=== PATIENT | female | born 1950 | race Two or more races ===

== ENCOUNTER → 2018-08-02 | Emergency (ER) | payer OTHER ==
[~2018-08-02] VITALS: Ht 160 cm; Wt 72.6 kg
[~2018-08-02] MED LIST: COZAAR25 MG; SYNTHROID200 MCG; VASOTEC2.5 MG
== END | disposition home or self-care (01) ==
LOC: ER 10:56
DX: J45.998 Other asthma (principal)

== ENCOUNTER → 2022-08-05 | Outpatient (CLI) | payer OTHER | END | disposition home or self-care (01) | LOC: NUCLEAR 07:00 | PROVIDERS: ATTEND Specialist | DX: I11.9 Hypertensive heart disease without heart failure (principal); E78.5 Hyperlipidemia, unspecified; E11.9 Type 2 diabetes mellitus without complications | CPT/HCPCS: 78452; 93017; A9500 ==

== ENCOUNTER 2022-08-28 07:39 | Outpatient (CLI) | payer OTHER | END 2022-08-28 07:45 | disposition home or self-care (01) | LOC: LAB 07:39 | PROVIDERS: ATTEND Internal Medicine Hematology & Oncology | DX: D50.8 Other iron deficiency anemias (principal); I10 Essential (primary) hypertension; R74.02 Elevation of levels of lactic acid dehydrogenase [LDH]; K76.89 Other specified diseases of liver; D51.1 Vitamin B12 deficiency anemia due to selective vitamin B12 malabsorption with proteinuria; D51.0 Vitamin B12 deficiency anemia due to intrinsic factor deficiency; E03.8 Other specified hypothyroidism; E06.3 Autoimmune thyroiditis; D51.3 Other dietary vitamin B12 deficiency anemia; D69.6 Thrombocytopenia, unspecified; E11.9 Type 2 diabetes mellitus without complications; D72.820 Lymphocytosis (symptomatic); K80.20 Calculus of gallbladder without cholecystitis without obstruction ==

== ENCOUNTER → 2022-12-11 08:22 | Outpatient (CLI) | payer OTHER ==
[2022-12-11 09:26] LABS: URINE APPEARANCE Clear; URINE BILIRRUBIN Negative (NEGATIVE); URINE BLOOD Negative; URINE COLOR Yellow; URINE GLUCOSE Negative (NEGATIVE); URINE LEUKOCYTE Negative; URINE NITRATE Negative; URINE PROTEIN Negative (NEGATIVE); URINE UROBILINOGEN 0.2 E.U./dl
[2022-12-11 09:30] LABS: URINE BACTERIA 15.1 uL (0.0-1933); URINE EPITHELIAL CELLS 4.7 uL (0.0-38.8); URINE WBC 3.5 uL (0.0-23.2)
[2022-12-11 09:37] LABS: URINE RBC 1.4 uL (0.0-20.8)
[2022-12-11 10:10] LABS: ALBUMIN 3.9 gm/dL (3.4-5.0); BILIRUBIN TOTAL 0.49 mg/dL (0.3-1.2); CALCIUM 8.8 mg/dL (8.5-10.1); CHOL HDL RATIO 2.4 (0-5.0); CREATININE SERUM 0.66 mg/dL (0.55-1.02); GFR 88.54; GLOBULINA 3.9 G/DL (2.4-3.5); POTASSIUM 3.92 mEq/L (3.5-5.1); T4 FREE 1.05 NG/ML (0.76-1.46); TOTAL PROTEIN 7.8 gm/dL (6.4-8.2); TSH 3.07 uIU/mL (0.358-3.74)
[2022-12-11 10:11] LABS: HEMATOCRIT 39.1 % (36.0-45.00); HEMOGLOBIN 12.7 g/dL (12.0-15.00); MEAN CELL VOLUME 93.7 fL (80.00-100.00); MEAN CORPUSCULAR HEMOGLOBIN 30.5 pg (27.00-32.0); MEAN CORPUSCULAR HGB CONC 32.5 g/dl (32.0-36.0); RED BLOOD COUNT 4.18 M/uL (4.00-6.00); RED CELL DISTRIBUTION WIDTH 13.6 % (11.5-14.5)
[2022-12-11 11:35] LABS: FOLIC ACID > 20.00 ng/ml (4.78-20)
[2022-12-11 13:10] LABS: PLATELET COUNT 82 K/uL (150-450)
== END | disposition home or self-care (01) ==
LOC: LAB 08:22
PROVIDERS: ATTEND Internal Medicine Hematology & Oncology
DX: I11.9 Hypertensive heart disease without heart failure (principal); E03.5 Myxedema coma; E11.9 Type 2 diabetes mellitus without complications; D50.8 Other iron deficiency anemias; R79.9 Abnormal finding of blood chemistry, unspecified; R74.02 Elevation of levels of lactic acid dehydrogenase [LDH]; K76.89 Other specified diseases of liver; E03.8 Other specified hypothyroidism; D63.8 Anemia in other chronic diseases classified elsewhere; D55.0 Anemia due to glucose-6-phosphate dehydrogenase [G6PD] deficiency; D51.8 Other vitamin B12 deficiency anemias; D63.1 Anemia in chronic kidney disease; C73 Malignant neoplasm of thyroid gland; D51.3 Other dietary vitamin B12 deficiency anemia; D69.6 Thrombocytopenia, unspecified; D72.820 Lymphocytosis (symptomatic); K80.20 Calculus of gallbladder without cholecystitis without obstruction; G25.0 Essential tremor

== ENCOUNTER 2023-05-08 08:00 | Outpatient (CLI) | payer OTHER ==
[2023-05-08] MEDS ORDERED: SYNTHROID112 MCG PO (08:53)
[2023-05-08] MEDS ORDERED: METFORMIN HCL1000 MG PO (08:54)
[2023-05-08] MEDS ORDERED: LIPITOR40 MG PO (08:54)
[2023-05-08 10:05] LABS: COL EPI 122 SECONDS (82-175)
== END 2023-05-08 08:34 | disposition home or self-care (01) ==
LOC: LAB 08:00
PROVIDERS: ATTEND Internal Medicine Pulmonary Disease
DX: D69.1 Qualitative platelet defects (principal)

== ENCOUNTER 2023-05-18 05:25 | Inpatient (IN) | payer OTHER ==
[2023-05-08 09:37] LABS: HEMATOCRIT 36.4 % (36.0-45.00); HEMOGLOBIN 12.4 g/dL (12.0-15.00); MEAN CELL VOLUME 93.2 fL (80.00-100.00); MEAN CORPUSCULAR HEMOGLOBIN 31.8 pg (27.00-32.0); MEAN CORPUSCULAR HGB CONC 34.1 g/dl (32.0-36.0); RED BLOOD COUNT 3.91 M/uL (4.00-6.00); RED CELL DISTRIBUTION WIDTH 13.8 % (11.5-14.5)
[2023-05-08 09:39] LABS: PLATELET COUNT 128 K/uL (150-450); URINE APPEARANCE Clear; URINE BILIRRUBIN Negative (NEGATIVE); URINE BLOOD Negative; URINE COLOR Yellow; URINE GLUCOSE Negative (NEGATIVE); URINE LEUKOCYTE Negative; URINE NITRATE Negative; URINE PROTEIN Negative (NEGATIVE); URINE UROBILINOGEN 0.2 E.U./dl
[2023-05-08 09:43] LABS: URINE BACTERIA 13.8 uL (0.0-1933); URINE EPITHELIAL CELLS 1.6 uL (0.0-38.8); URINE WBC 2.2 uL (0.0-23.2)
[2023-05-08 09:47] LABS: URINE RBC 0.2 uL (0.0-20.8)
[2023-05-08 10:00] LABS: ALBUMIN 3.9 gm/dL (3.4-5.0); BILIRUBIN TOTAL 0.39 mg/dL (0.3-1.2); CALCIUM 9.6 mg/dL (8.5-10.1); CREATININE SERUM 0.63 mg/dL (0.55-1.02); GFR 93.15; GLOBULINA 3.7 G/DL (2.4-3.5); POTASSIUM 4.37 mEq/L (3.5-5.1); TOTAL PROTEIN 7.6 gm/dL (6.4-8.2)
[2023-05-08 10:25] LABS: INR 1.01; PARTIAL THROMBOPLASTIN TIME 28.4 SECONDS (22.0-34.0); PROTHROMBIN TIME 10.6 SECONDS (9.0-11.5)
[~2023-05-18] VITALS: Ht 160 cm; Wt 66.7 kg
[~2023-05-18 05:25] MED LIST changes: +LIPITOR40 MG PO; +METFORMIN HCL1000 MG PO; +SYNTHROID112 MCG PO
[2023-05-18] MEDS ORDERED: DEXAMETHASONE SODIUM PHOSPHATE 4 MG/ML VIAL ONE ×2 (07:18→07:24)
[2023-05-18] MEDS ORDERED: CEFAZOLIN SODIUM 1,000 MG VIAL ONE (08:22)
[2023-05-18] MEDS ORDERED: DEXAMETHASONE SODIUM PHOSPHATE 4 MG/ML VIAL IV ONE (09:30)
[2023-05-18] MEDS ORDERED: CEFAZOLIN SODIUM 1,000 MG VIAL IV ONE (09:30)
[2023-05-18] MEDS ORDERED: ENALAPRILAT DIHYDRATE 1.25 MG/ML VIAL IV PRN (10:45)
[2023-05-18] MEDS ORDERED: ONDANSETRON HCL 2 MG/ML VIAL IV PRN (10:45)
[2023-05-18] MEDS ORDERED: ACETAMINOPHEN 500 MG GEL..CAP PO SCH (13:00)
[2023-05-18] MEDS ORDERED: LEVALBUTEROL HCL 1.25 MG/3 ML SOLUTION IH SCH (13:00)
[2023-05-18] MEDS ORDERED: Calcium Carbonate 1 TAB TABLET PO SCH (21:00)
[2023-05-18] MEDS ORDERED: BUDESONIDE 0.5 MG/2 ML AMPUL.NEB IH SCH (21:00)
[2023-05-18] MEDS ORDERED: PANTOPRAZOLE SODIUM 40 MG/VIAL VIAL IV PUSH SCH (21:00)
[2023-05-19] MEDS ORDERED: LOSARTAN POTASSIUM 25 MG TABLET PO SCH (09:00)
[2023-05-19] MEDS ORDERED: LEVOTHYROXINE SODIUM 112 MCG TABLET PO SCH (09:00)
[2023-05-19] MEDS ORDERED: ATORVASTATIN CALCIUM 40 MG TABLET PO SCH (09:00)
== END 2023-05-19 09:49 | disposition home or self-care (01) | DRG 627 ==
LOC: CIR.AMB 05:25 → O/R 11:57 → SURG 12:31
PROVIDERS: ADMIT Otolaryngology; ATTEND Otolaryngology
PROC: 0GTG0ZZ Resection of Left Thyroid Gland Lobe, Open Approach (ICD-10-PCS; principal; 2023-05-18 07:00)
DX: C73 Malignant neoplasm of thyroid gland (principal); Z20.822 Contact with and (suspected) exposure to COVID-19